=== PATIENT | female | born 1950 | race Caucasian/White ===

== ENCOUNTER 2021-05-29 14:25 | Inpatient (IN) | payer MEDICARE, MEDICAID ==
[2021-05-29 15:10] LABS: Amphetamine Not Detected (NotDetected); Barbiturates Screen Not Detected (NotDetected); Benzodiazepine Screen Detected (NotDetected); Cocaine Metabolite Screen Not Detected (NotDetected); Methadone Not Detected (NotDetected); Methamphetamine Not Detected (NotDetected); Opiate Screen Not Detected (NotDetected); Oxycodone Screen Not Detected (NotDetected); Phencyclidine (PCP) Not Detected (NotDetected); THC/Cannabinoid Screen Detected (NotDetected); Tricyclic Screen Detected (NotDetected)
[2021-05-29 15:16] LABS: #Eosinphils 0.2 thou/uL (0.0-0.7); #Lymphocytes 1.1 thou/uL (1.20-3.40); #Monocytes 0.6 thou/uL (0.11-0.59); #Neutrophils 2.9 thou/uL (1.40-6.50); %Basophils 0.7 % (0.0-1.0); %Lymphocytes 22.1 % (21.0-51.0); %Monocytes 12.5 % (0.0-10.0); %Neutrophils 59.7 % (42.0-75.0); Mean Corpuscular HGB CONC 34.1 g/dL (32.0-36.0); Mean Corpuscular Hemoglobin 32.3 pg (27.0-31.0); Mean Corpuscular Volume 94.7 fL (78.0-98.0); Mean Platelet Volume 7.7 fL (7.4-10.4); Platelet Count 162 thou/uL (130-400); Red Blood Cell (RBC) Count 4.33 mill/uL (4.20-5.40); White Blood Cell (WBC) Count 4.8 thou/uL (4.8-10.8)
[2021-05-29 15:52] LABS: ALT (SGPT) 21 U/L (8-55); AST (SGOT) 33 U/L (5-34); Acetaminophen Less than 6.0 mcg/mL (10.0-30.0); Albumin 3.6 g/dL (3.4-4.8); Alcohol Less than 10 mg/dL (Less than 10); Alkaline Phosphatase 74 U/L (40-110); Anion Gap 17 mmol/L (10-20); BUN (Urea Nitrogen) 27 mg/dL (9.8-20.1); Bilirubin, Total 0.4 mg/dL (0.2-1.2); Calc. Creatinine Clearance 0 mL/min (70-130); Calcium 9.1 mg/dL (7.8-10.44); Carbon Dioxide 24 mmol/L (23-31); Chloride 108 mmol/L (98-107); Globulin 3.2 g/dL (2.4-3.5); Glucose 104 mg/dL (83-110); Potassium 3.9 mmol/L (3.5-5.1); Protein, Total 6.8 g/dL (5.8-8.1); Salicylate Less than 8.0 mg/dL (15.0-30.0); Sodium 145 mmol/L (136-145)
[2021-05-29 16:28] LABS: Bacteria/HPF 4+ HPF (None Seen); Bilirubin Negative (Negative); Blood, Urine 2+ (Negative); Clarity Turbid (Clear); Glucose, Urine (Dipstick) Normal (Negative); Ketone, Urine Trace mg/dL (Negative); Leukocyte 500 Leu/uL (Negative); Nitrite 2+ (Negative); Protein, Urine (Dipstick) 30 mg/dL (Neg-Trace); RBC/HPF 21-50 HPF (0-3); Specific Gravity, Urine 1.023 (1.002-1.036); Urobilinogen Normal mg/dL (Less than 2); WBC/HPF Greater than 50 HPF (0-3)
[2021-05-29] MEDS ORDERED: cefTRIAXone\\ROCEPHIN 1 GM VIAL ONE (17:17)
[2021-05-29] MEDS ORDERED: Vancomycin 1 GM/200 ML BAG ONE (17:17)
[2021-05-29] MEDS ORDERED: Ondansetron PF 4 MG/2 ML Vial IVP PRN (17:45)
[2021-05-29] MEDS ORDERED: Senokot S 8.6-50 MG TAB PO PRN (17:45)
[2021-05-29] MEDS ORDERED: Acetaminophen 325 MG TAB PO PRN (17:45)
[2021-05-29] MEDS ORDERED: Enoxaparin Sodium 40 MG/0.4 ML SYRINGE SC SCH (17:45)
[2021-05-29] MEDS ORDERED: Bisacodyl 5 MG TAB PO PRN (17:45)
[2021-05-29] MEDS ORDERED: hydrALAZINE 20 MG/ML VIAL SLOW IVP PRN (17:52)
[2021-05-29 21:01] VITALS: BMI 19.0
[2021-05-29] MEDS: Dextrose 5 %-0.45 % NaCl 1,000 ML IV SCH (21:08)
[2021-05-29] MEDS: Pantoprazole 40 MG VIAL IVP SCH (21:09)
[2021-05-30] MEDS: Vancomycin HCl 500 MG in Sodium Chloride 0.9% 100 ML IVPB SCH ×2 (05:38→18:02)
[2021-05-30] MEDS: Levothyroxine Sodium 50 MCG TAB PO SCH (05:38)
[2021-05-30 06:02] LABS: #Eosinphils 0.3 thou/uL (0.0-0.7); #Lymphocytes 1.1 thou/uL (1.20-3.40); #Monocytes 0.7 thou/uL (0.11-0.59); #Neutrophils 3.1 thou/uL (1.40-6.50); %Basophils 0.9 % (0.0-1.0); %Eosinophils 5.3 % (0.0-10.0); %Lymphocytes 21.8 % (21.0-51.0); %Monocytes 12.8 % (0.0-10.0); %Neutrophils 59.2 % (42.0-75.0); Hemoglobin 11.4 g/dL (12.0-16.0); Mean Corpuscular HGB CONC 33.1 g/dL (32.0-36.0); Mean Corpuscular Hemoglobin 31.4 pg (27.0-31.0); Mean Corpuscular Volume 94.8 fL (78.0-98.0); Mean Platelet Volume 7.8 fL (7.4-10.4); Platelet Count 162 thou/uL (130-400); RBC Distribution Width 11.7 % (11.5-14.5); Red Blood Cell (RBC) Count 3.62 mill/uL (4.20-5.40); White Blood Cell (WBC) Count 5.2 thou/uL (4.8-10.8)
[2021-05-30 06:32] LABS: Anion Gap 14 mmol/L (10-20); BUN (Urea Nitrogen) 24 mg/dL (9.8-20.1); Calc. Creatinine Clearance 61 mL/min (70-130); Calcium 8.3 mg/dL (7.8-10.44); Carbon Dioxide 23 mmol/L (23-31); Chloride 108 mmol/L (98-107); Glucose 125 mg/dL (83-110); Potassium 3.3 mmol/L (3.5-5.1); Sodium 142 mmol/L (136-145)
[2021-05-30] MEDS: Enoxaparin Sodium 40 MG/0.4 ML SYRINGE SC SCH (08:44)
[2021-05-30] MEDS ORDERED: Electrolyte Replacement Protocol 1 EACH FS PRN (09:00)
[2021-05-30] MEDS: Potassium Chloride 20 MEQ in Premix Bag 1 BAG IVPB SCH ×2 (09:37→11:54)
[2021-05-30] MEDS: Dextrose 5 %-0.45 % NaCl 1,000 ML IV SCH (15:15)
[2021-05-30] MEDS: ALPRAZolam 0.25 MG TAB PO SCH (15:42)
[2021-05-30 17:03] LABS: SARS-CoV-2 PCR by NAA Not Detected (NotDetected)
[2021-05-30] MEDS: cefTRIAXone\\ROCEPHIN 1 GM in Sodium Chloride 0.9% 100 ML IVPB SCH (17:08)
[2021-05-30] MEDS: Pantoprazole 40 MG VIAL IVP SCH (21:01)
[2021-05-30] MEDS: Prazosin HCl 1 MG CAP PO SCH (21:01)
[2021-05-31] MEDS: Levothyroxine Sodium 50 MCG TAB PO SCH (04:46)
[2021-05-31] MEDS: Vancomycin HCl 500 MG in Sodium Chloride 0.9% 100 ML IVPB SCH (05:17)
[2021-05-31 05:41] LABS: Vancomycin, Trough 9.6 ug/mL
[2021-05-31] MEDS ORDERED: Potassium Chloride 20 MEQ TAB PO SCH (07:45)
[2021-05-31] MEDS: Enoxaparin Sodium 40 MG/0.4 ML SYRINGE SC SCH (08:34)
[2021-05-31] MEDS ORDERED: Potassium Chloride 10 MEQ in Premix Bag 1 BAG IVPB SCH (09:00)
[2021-05-31] MEDS: Dextrose 5 %-0.45 % NaCl 1,000 ML IV SCH (10:00)
[2021-05-31] MEDS: ALPRAZolam 0.25 MG TAB PO SCH (15:22)
[2021-05-31] MEDS: Lorazepam 2 MG/ML VIAL SLOW IVP PRN (15:23)
[2021-05-31] MEDS: cefTRIAXone\\ROCEPHIN 1 GM in Sodium Chloride 0.9% 100 ML IVPB SCH (17:49)
[2021-05-31] MEDS ORDERED: Vancomycin HCl 750 MG in Sodium Chloride 0.9% 250 ML 250 ML IVPB SCH (18:00)
[2021-05-31] MEDS: Prazosin HCl 1 MG CAP PO SCH (22:13)
[2021-05-31] MEDS: Pantoprazole 40 MG VIAL IVP SCH (22:14)
[2021-06-01 04:59] LABS: #Eosinphils 0.4 thou/uL (0.0-0.7); #Lymphocytes 1.4 thou/uL (1.20-3.40); #Monocytes 0.6 thou/uL (0.11-0.59); %Basophils 0.2 % (0.0-1.0); %Lymphocytes 31.4 % (21.0-51.0); %Monocytes 14.1 % (0.0-10.0); %Neutrophils 45.2 % (42.0-75.0); Hemoglobin 11.5 g/dL (12.0-16.0); Mean Corpuscular HGB CONC 35.9 g/dL (32.0-36.0); Mean Corpuscular Volume 91.9 fL (78.0-98.0); Platelet Count 151 thou/uL (130-400); RBC Distribution Width 11.7 % (11.5-14.5); Red Blood Cell (RBC) Count 3.49 mill/uL (4.20-5.40); White Blood Cell (WBC) Count 4.4 thou/uL (4.8-10.8)
[2021-06-01 05:22] LABS: Iron 72 ug/dL (50-170); Iron Binding Capacity, Total 190 mcg/dL (265-497)
[2021-06-01] MEDS: Levothyroxine Sodium 50 MCG TAB PO SCH (06:13)
[2021-06-01] MEDS: Dextrose 5 %-0.45 % NaCl 1,000 ML IV SCH (09:34)
[2021-06-01] MEDS: Enoxaparin Sodium 40 MG/0.4 ML SYRINGE SC SCH (09:36)
[2021-06-01] MEDS: ALPRAZolam 0.25 MG TAB PO SCH (09:36)
[2021-06-01] MEDS: D-Mannose [Azo D-Mannose] 500 MG Capsule PO SCH ×2 (09:49→10:14)
[2021-06-01] MEDS: cefTRIAXone\\ROCEPHIN 1 GM in Sodium Chloride 0.9% 100 ML IVPB SCH (16:37)
[2021-06-01] MEDS: Lorazepam 2 MG/ML VIAL SLOW IVP PRN (21:13)
[2021-06-01] MEDS: Pantoprazole 40 MG VIAL IVP SCH (21:14)
[2021-06-01] MEDS: Prazosin HCl 1 MG CAP PO SCH (21:14)
[2021-06-02] MEDS: Dextrose 5 %-0.45 % NaCl 1,000 ML IV SCH ×3 (03:36→21:03)
[2021-06-02] MEDS: Levothyroxine Sodium 50 MCG TAB PO SCH (05:16)
[2021-06-02] MEDS ORDERED: Artificial Tear Sol 15 ML BOT EA EYE PRN (07:28)
[2021-06-02] MEDS ORDERED: Bisacodyl 10 MG SUPP PR PRN (07:28)
[2021-06-02] MEDS ORDERED: Sodium Chloride 0.65% Nasal 44 ML BOT EA NARE PRN (07:28)
[2021-06-02] MEDS ORDERED: Loperamide HCl 2 MG CAP PO PRN (07:28)
[2021-06-02] MEDS ORDERED: Ondansetron ODT 4 MG TAB PO PRN (07:28)
[2021-06-02] MEDS ORDERED: GUAIFENESIN SF SOLN 200 MG/10 ML UDCUP PO PRN (07:28)
[2021-06-02] MEDS ORDERED: Hydrocerin (Eucerin) Cream 120 gm Jar TOP PRN (07:28)
[2021-06-02] MEDS ORDERED: Calcium Carbonate 500 MG ChewTAB PO PRN (07:28)
[2021-06-02] MEDS ORDERED: Loratadine 10 MG TAB PO PRN (07:28)
[2021-06-02] MEDS ORDERED: Cepastat Lozenges 1 LOZ PO PRN (07:28)
[2021-06-02] MEDS: ALPRAZolam 0.25 MG TAB PO SCH (09:07)
[2021-06-02] MEDS: Divalproex Sodium 125 mg Sprinkle Capsule PO SCH (10:47)
[2021-06-02] MEDS: cefTRIAXone\\ROCEPHIN 1 GM in Sodium Chloride 0.9% 100 ML IVPB SCH (18:21)
[2021-06-02] MEDS: Prazosin HCl 1 MG CAP PO SCH (20:33)
[2021-06-02] MEDS: Pantoprazole 40 MG VIAL IVP SCH (20:33)
[2021-06-02] MEDS: Lorazepam 2 MG/ML VIAL SLOW IVP PRN (23:15)
[2021-06-03 05:10] LABS: ALT (SGPT) 50 U/L (8-55); AST (SGOT) 46 U/L (5-34); Albumin 3.1 g/dL (3.4-4.8); Alkaline Phosphatase 61 U/L (40-110); Anion Gap 10 mmol/L (10-20); BUN (Urea Nitrogen) 9 mg/dL (9.8-20.1); Bilirubin, Total 0.4 mg/dL (0.2-1.2); Calc. Creatinine Clearance 58 mL/min (70-130); Calcium 8.6 mg/dL (7.8-10.44); Carbon Dioxide 24 mmol/L (23-31); Chloride 106 mmol/L (98-107); Globulin 2.3 g/dL (2.4-3.5); Glucose 130 mg/dL (83-110); Magnesium 1.9 mg/dL (1.6-2.6); Phosphorus 3.5 mg/dL (2.3-4.7); Potassium 3.2 mmol/L (3.5-5.1); Protein, Total 5.4 g/dL (5.8-8.1); Sodium 137 mmol/L (136-145)
[2021-06-03] MEDS ORDERED: Magnesium 2 GM/50 ML 2 GM in Premix Bag 1 BAG IVPB SCH (05:45)
[2021-06-03 06:08] LABS: #Eosinphils 0.3 thou/uL (0.0-0.7); #Lymphocytes 1.3 thou/uL (1.20-3.40); #Monocytes 0.8 thou/uL (0.11-0.59); #Neutrophils 3.4 thou/uL (1.40-6.50); %Basophils 0.2 % (0.0-1.0); %Eosinophils 4.6 % (0.0-10.0); %Lymphocytes 22.6 % (21.0-51.0); %Monocytes 13.4 % (0.0-10.0); %Neutrophils 59.2 % (42.0-75.0); Hemoglobin 11.7 g/dL (12.0-16.0); Mean Corpuscular HGB CONC 34.7 g/dL (32.0-36.0); Mean Corpuscular Hemoglobin 31.7 pg (27.0-31.0); Mean Corpuscular Volume 91.3 fL (78.0-98.0); Mean Platelet Volume 8.1 fL (7.4-10.4); Platelet Count 181 thou/uL (130-400); RBC Distribution Width 12.3 % (11.5-14.5); Red Blood Cell (RBC) Count 3.67 mill/uL (4.20-5.40); White Blood Cell (WBC) Count 5.7 thou/uL (4.8-10.8)
[2021-06-03] MEDS: Potassium Chloride 20 MEQ in Premix Bag 1 BAG IVPB SCH ×2 (06:08→09:09)
[2021-06-03] MEDS: Levothyroxine Sodium 50 MCG TAB PO SCH (06:09)
[2021-06-03] MEDS: Ferrous Sulfate 325 MG TAB PO SCH (12:49)
[2021-06-03] MEDS: ALPRAZolam 0.25 MG TAB PO SCH (13:00)
[2021-06-03] MEDS: Multivitamin W/ Minerals 1 TAB PO SCH (13:01)
[2021-06-03] MEDS: Folic Acid 1 MG TAB PO SCH (13:01)
[2021-06-03] MEDS: Divalproex Sodium 125 mg Sprinkle Capsule PO SCH (13:02)
[2021-06-03] MEDS: Cyanocobalamin (Vitamin B-12) 1,000 MCG TAB PO SCH (13:05)
[2021-06-03] MEDS: Pantoprazole 40 MG GRANULES PACKET PO SCH (13:05)
[2021-06-03] MEDS: cefTRIAXone\\ROCEPHIN 1 GM in Sodium Chloride 0.9% 100 ML IVPB SCH (17:48)
[2021-06-03] MEDS: Prazosin HCl 1 MG CAP PO SCH (21:17)
[2021-06-04] MEDS: Dextrose 5 %-0.45 % NaCl 1,000 ML IV SCH ×2 (04:06→23:36)
[2021-06-04] MEDS: Levothyroxine Sodium 50 MCG TAB PO SCH (05:30)
[2021-06-04] MEDS: Pantoprazole 40 MG GRANULES PACKET PO SCH (08:37)
[2021-06-04] MEDS: Folic Acid 1 MG TAB PO SCH (08:37)
[2021-06-04] MEDS: Cyanocobalamin (Vitamin B-12) 1,000 MCG TAB PO SCH (08:37)
[2021-06-04] MEDS: Divalproex Sodium 125 mg Sprinkle Capsule PO SCH (08:37)
[2021-06-04] MEDS: ALPRAZolam 0.25 MG TAB PO SCH (08:37)
[2021-06-04] MEDS: Ferrous Sulfate 325 MG TAB PO SCH (08:37)
[2021-06-04] MEDS: Enoxaparin Sodium 40 MG/0.4 ML SYRINGE SC SCH (08:37)
[2021-06-04] MEDS: Multivitamin W/ Minerals 1 TAB PO SCH (08:38)
[2021-06-04] MEDS: cefTRIAXone\\ROCEPHIN 1 GM in Sodium Chloride 0.9% 100 ML IVPB SCH (16:19)
[2021-06-04] MEDS: Prazosin HCl 1 MG CAP PO SCH (23:34)
[2021-06-05] MEDS: Lorazepam 2 MG/ML VIAL SLOW IVP PRN (01:51)
[2021-06-05] MEDS: Levothyroxine Sodium 50 MCG TAB PO SCH (06:44)
[2021-06-05] MEDS: Multivitamin W/ Minerals 1 TAB PO SCH (10:18)
[2021-06-05] MEDS: Enoxaparin Sodium 40 MG/0.4 ML SYRINGE SC SCH (10:18)
[2021-06-05] MEDS: Pantoprazole 40 MG GRANULES PACKET PO SCH (10:19)
[2021-06-05] MEDS: Ferrous Sulfate 325 MG TAB PO SCH (10:19)
[2021-06-05] MEDS: Divalproex Sodium 125 mg Sprinkle Capsule PO SCH (10:19)
[2021-06-05] MEDS: Folic Acid 1 MG TAB PO SCH (10:19)
[2021-06-05] MEDS: Cyanocobalamin (Vitamin B-12) 1,000 MCG TAB PO SCH (10:19)
[2021-06-05] MEDS: ALPRAZolam 0.25 MG TAB PO SCH (10:19)
[2021-06-05] MEDS: cefTRIAXone\\ROCEPHIN 1 GM in Sodium Chloride 0.9% 100 ML IVPB SCH (16:05)
[2021-06-05] MEDS: Dextrose 5 %-0.45 % NaCl 1,000 ML IV SCH (18:40)
[2021-06-05] MEDS: Prazosin HCl 1 MG CAP PO SCH (22:10)
[2021-06-05] MEDS: ALPRAZolam 0.25 MG TAB PO PRN (22:10)
[2021-06-06 05:23] LABS: Anion Gap 13 mmol/L (10-20); BUN (Urea Nitrogen) 7 mg/dL (9.8-20.1); Calc. Creatinine Clearance 61 mL/min (70-130); Calcium 8.5 mg/dL (7.8-10.44); Carbon Dioxide 20 mmol/L (23-31); Chloride 108 mmol/L (98-107); Glucose 111 mg/dL (83-110); Potassium 3.4 mmol/L (3.5-5.1); Sodium 138 mmol/L (136-145)
[2021-06-06] MEDS: Levothyroxine Sodium 50 MCG TAB PO SCH (05:37)
[2021-06-06] MEDS: Potassium Chloride 20 MEQ in Premix Bag 1 BAG IVPB SCH ×2 (06:34→08:42)
[2021-06-06] MEDS ORDERED: D5 LR w/20 mEq KCL 1,000 ML IV SCH (07:00)
[2021-06-06 07:27] LABS: Magnesium 1.8 mg/dL (1.6-2.6)
[2021-06-06 08:24] LABS: Band 1 % (5-11); Eosinophils 5 % (0-10); Hemoglobin 11.7 g/dL (12.0-16.0); Lymphocytes 35 % (21-51); MDiff Complete? YES; Mean Corpuscular HGB CONC 35.2 g/dL (32.0-36.0); Mean Corpuscular Hemoglobin 32.7 pg (27.0-31.0); Mean Corpuscular Volume 93.1 fL (78.0-98.0); Mean Platelet Volume 8.1 fL (7.4-10.4); Monocytes 8 % (0-10); Neutrophil 51 % (42-75); Platelet Count 165 thou/uL (130-400); Red Blood Cell (RBC) Count 3.57 mill/uL (4.20-5.40); White Blood Cell (WBC) Count 4.5 thou/uL (4.8-10.8)
[2021-06-06] MEDS ORDERED: Potassium Chloride 20 MEQ TAB PO SCH (10:00)
[2021-06-06] MEDS: Divalproex Sodium 125 mg Sprinkle Capsule PO SCH (10:34)
[2021-06-06] MEDS: ALPRAZolam 0.25 MG TAB PO SCH (10:34)
[2021-06-06] MEDS: Folic Acid 1 MG TAB PO SCH (10:35)
[2021-06-06] MEDS: Cyanocobalamin (Vitamin B-12) 1,000 MCG TAB PO SCH (10:35)
[2021-06-06] MEDS: Enoxaparin Sodium 40 MG/0.4 ML SYRINGE SC SCH (10:35)
[2021-06-06] MEDS: Pantoprazole 40 MG GRANULES PACKET PO SCH (10:35)
[2021-06-06] MEDS: Ferrous Sulfate 325 MG TAB PO SCH (10:35)
[2021-06-06] MEDS: Multivitamin W/ Minerals 1 TAB PO SCH (10:35)
[2021-06-06] MEDS: cefTRIAXone\\ROCEPHIN 1 GM in Sodium Chloride 0.9% 100 ML IVPB SCH (17:14)
[2021-06-06] MEDS: Prazosin HCl 1 MG CAP PO SCH (20:48)
[2021-06-06] MEDS: ALPRAZolam 0.25 MG TAB PO PRN (22:29)
[2021-06-06 23:55] LABS: SARS-CoV-2 PCR by NAA Not Detected (NotDetected)
[2021-06-07] MEDS ORDERED: Levothyroxine Sodium 75 MCG TAB PO SCH (06:00)
[2021-06-07] MEDS: Enoxaparin Sodium 40 MG/0.4 ML SYRINGE SC SCH (11:33)
[2021-06-07] MEDS: Folic Acid 1 MG TAB PO SCH (11:33)
[2021-06-07] MEDS: Pantoprazole 40 MG GRANULES PACKET PO SCH (11:33)
[2021-06-07] MEDS: Divalproex Sodium 125 mg Sprinkle Capsule PO SCH (11:36)
[2021-06-07] MEDS: Cyanocobalamin (Vitamin B-12) 1,000 MCG TAB PO SCH (11:36)
[2021-06-07] MEDS: Multivitamin W/ Minerals 1 TAB PO SCH (11:38)
[2021-06-07] MEDS: ALPRAZolam 0.25 MG TAB PO SCH (11:38)
[2021-06-07] MEDS: Ferrous Sulfate 325 MG TAB PO SCH (11:41)
[2021-06-07 15:11] VITALS: BP 151/90; TEMP 98.2
[2021-06-07] MEDS: cefTRIAXone\\ROCEPHIN 1 GM in Sodium Chloride 0.9% 100 ML IVPB SCH (18:27)
== END 2021-06-07 18:35 | DRG 689 ==
LOC: ERS 14:25 → 2NO 17:24 → SURG B 06-04 20:52
PROVIDERS: ADMIT Internal Medicine; ATTEND Internal Medicine
DX: N39.0 Urinary tract infection, site not specified (principal); G93.41 Metabolic encephalopathy; E44.0 Moderate protein-calorie malnutrition; K92.2 Gastrointestinal hemorrhage, unspecified; Z68.1 Body mass index [BMI] 19.9 or less, adult; E03.9 Hypothyroidism, unspecified; G30.9 Alzheimer's disease, unspecified; F02.80 Dementia in other diseases classified elsewhere, unspecified severity, without behavioral disturbance, psychotic disturbance, mood disturbance, and anxiety; R00.1 Bradycardia, unspecified; I10 Essential (primary) hypertension; F43.10 Post-traumatic stress disorder, unspecified; Z20.822 Contact with and (suspected) exposure to COVID-19; D64.9 Anemia, unspecified; E87.6 Hypokalemia
CPT/HCPCS: 36415; 70450; 71045; 80048; 80053; 80202; 80306; 80307; 81003; 81015; 82274; 82728; 83540; 83550; 83605; 83735; 84100; 84443; 84484; 85014; 85018; 85025; 87040; 93005; 93010; 96365; 96367; C9113; J0696; J1650; J2060; J3370; J3475; J3480; J3490; J7042; U0003; U0005